=== PATIENT | male | born 1965 | race Two or more races ===

== ENCOUNTER 2017-03-12 03:50 | Emergency (ER) | payer OTHER ==
[~2017-03-12] VITALS: Ht 170.2 cm; Wt 86.2 kg
[2017-03-12 03:58] VITALS: Ht 170.2 cm; Wt 86.2 kg
[2017-03-12 04:10] LABS: microscopic required? NO
[2017-03-12 04:22] LABS: urine erythrocyte NEGATIVE (NEGATIVE)
[2017-03-12 04:28] LABS: CALCIUM 8.3 mg/dL (8.5-10.1); CHLORIDE SERUM 93 mmol/L (98-107); CREATININE SERUM 0.8 mg/dL (0.7-1.3); GFR1 > 60 mL/min; GLUCOSE SERUM 104 mg/dL (74-106); SODIUM SERUM 128 mmol/L (136-145)
[2017-03-12 04:31] LABS: AMPHETAMINE QUAL UR NONE DETECTED (NEG <=1000)
[2017-03-12 06:12] VITALS: BP 140/80
== END 2017-03-12 06:13 | disposition home or self-care (01) ==
LOC: ED 03:50
PROVIDERS: Emergency Medicine
DX: R56.9 Unspecified convulsions (principal)
CPT/HCPCS: G0480; J2060; J7030